=== PATIENT | female | born 1960 | race Caucasian/White ===

== ENCOUNTER 2024-05-18 06:18 | Day surgery (SDC) | payer BC, MEDICARE ==
[2024-05-12 14:50] VITALS: BMI 30.5
[2024-05-18] MEDS ORDERED: PROPOFOL 20 ML ONE (07:13)
[2024-05-18] MEDS ORDERED: MIDAZOLAM HCL 2 MG/2 ML SINGLE DOSE VIAL ONE (07:14)
[2024-05-18] MEDS ORDERED: EPINEPHrine 1:1,000 1,000 MCG/ML ML ONE (07:18)
[2024-05-18] MEDS ORDERED: BUPIVACAINE HCL/EPINEPHRINE/PF 30 ML VIAL IJ ONE (07:18)
[2024-05-18] MEDS ORDERED: BUPIVACAINE HCL/PF 0.5% (5 MG/ML) 30 ML VIAL IJ ONE (07:26)
[2024-05-18] MEDS ORDERED: DEXAMETHASONE SOD PHOSPHATE 10 MG/1 ML VIAL ONE (07:26)
[2024-05-18] MEDS ORDERED: ACETAMINOPHEN INJECTION 100 ML ONE (07:27)
[2024-05-18] MEDS ORDERED: ceFAZolin SODIUM 1 GM VIAL ONE (07:50)
[2024-05-18] MEDS ORDERED: KETOROLAC TROMETHAMINE 30 MG/1 ML VIAL ONE (07:58)
[2024-05-18] MEDS ORDERED: ONDANSETRON 4 MG/2 ML VIAL ONE (07:58)
[2024-05-18] MEDS ORDERED: DEXAMETHASONE SOD PHOSPHATE 4 MG/1 ML VIAL ONE (07:58)
[2024-05-18] MEDS ORDERED: LIDOCAINE HCL/PF 2% SDV 5ML VIAL ONE (07:58)
[2024-05-18] MEDS ORDERED: oxyCODONE HCL 5 MG TABLET PO PRN (09:07)
[2024-05-18] MEDS ORDERED: LACTATED RINGERS SOLUTION 1,000 ML IV SCH (09:15)
[2024-05-18 10:45] VITALS: RESP 17; TEMP 97
[2024-05-18 10:48] VITALS: BP 104/66; PULSE 64
== END 2024-05-18 10:55 | disposition home or self-care (01) ==
LOC: FASU 06:18
PROVIDERS: ATTEND Orthopaedic Surgery
PROC: 0LB24ZZ Excision of Left Shoulder Tendon, Percutaneous Endoscopic Approach (ICD-10-PCS; principal; 2024-05-18 08:10)
DX: M75.102 Unspecified rotator cuff tear or rupture of left shoulder, not specified as traumatic (principal)
CPT/HCPCS: 94760; C1713; J0131; J1100